=== PATIENT | male | born 1950 | race Caucasian/White ===

== ENCOUNTER 2018-04-16 05:47 | Day surgery (SDC) | payer MEDICARE ==
[~2018-04-16] VITALS: Ht 170.2 cm; Wt 73.0 kg
[~2018-04-16 05:47] MED LIST: ADULT ASPIRIN E81 MG PO; ALTOPREV20 MG PO; CVS OMEPRAZOLE20 MG; CVS OMEPRAZOLE20 MG PO; CYCLOBENZAPRINE10 MG PO; DICLOFENAC50 MG PO; FLEXERIL PO; ISOSORB MONO30 MG PO; LISINOPRIL10 MG PO; LOPID600 MG PO; MELOXICAM15 MG PO; METFORMIN500 MG PO; MULTIVITAMIN ME1 TAB PO; NITROGLYCERIN0.4 MG SL; NORCO1 TA1 PO; PERCOCET 10/31 COMBO PO; PLAVIX75 MG PO; PRILOSEC20 MG PO; TOPAMAX100 M1 PO; TOPROL XL PO; TRAZODONE50 MG PO; ZOLPIDEM10 MG PO
[2018-04-16 08:07] VITALS: BP 114/72
== END 2018-04-16 08:25 | disposition home or self-care (01) ==
LOC: ENDO 05:47
PROVIDERS: ATTEND Surgery
PROC: 0DJ08ZZ Inspection of Upper Intestinal Tract, Via Natural or Artificial Opening Endoscopic (ICD-10-PCS; principal; 2018-04-16)
PROC: 0DBP8ZX Excision of Rectum, Via Natural or Artificial Opening Endoscopic, Diagnostic (ICD-10-PCS; 2018-04-16)
DX: R63.4 Abnormal weight loss (principal); R10.13 Epigastric pain; R97.0 Elevated carcinoembryonic antigen [CEA]; K44.9 Diaphragmatic hernia without obstruction or gangrene; K31.9 Disease of stomach and duodenum, unspecified; K57.30 Diverticulosis of large intestine without perforation or abscess without bleeding; K62.1 Rectal polyp; M19.90 Unspecified osteoarthritis, unspecified site; I10 Essential (primary) hypertension; E11.9 Type 2 diabetes mellitus without complications; E78.00 Pure hypercholesterolemia, unspecified

== ENCOUNTER 2018-05-12 19:47 | Emergency (ER) | payer MEDICARE ==
[~2018-05-12] VITALS: Ht 170.2 cm; Wt 69.1 kg
[2018-05-12 20:49] LABS: HEMATOCRIT 34.1 % (39.0-50.0); HEMOGLOBIN 11.3 g/dl (14.0-18.0); MEAN CELL VOLUME 101.5 fL CALC (80.0-100.0); MEAN CORPUSCULAR HGB 33.6 pG CALC (26.0-32.0); MEAN CORPUSCULAR HGB CONC 33.1 g/L CALC (32.0-36.0); NEUT# 1.99 thou/uL (1.82-7.42); RED BLOOD COUNT 3.36 mill/uL (4.70-6.10); RED CELL DISTRI WIDTH 12.6 % (11.5-15.5)
[2018-05-12 21:02] LABS: ALBUMIN 4.4 g/dL (3.2-5.0); ALKALINE PHOSPHATASE 64 u/l (38-126); ANION GAP 15 (6-22 (CALC)); BILIRUBIN, TOTAL 0.4 mg/dL (0.0-1.4); BUN 18 mg/dL (8-23); BUN/CREATININE RATIO 22 (12-20 (CALC)); CARBON DIOXIDE 25 mmol/l (22-30); CHLORIDE 108 mmol/l (95-108); CREATININE 0.8 mg/dL (0.7-1.3); GFR > 60 ML/MIN (>=60 (CALC)); GFR FOR AFR.AMER. > 60 ML/MIN (>=60 (CALC)); LIPASE 256 u/l (23-300); POTASSIUM 4.6 mmol/l (3.5-5.1); SGOT/AST 49 u/l (19-48); SGPT/ALT 33 u/l (11-66); SODIUM 143 mmol/l (137-146); TOTAL PROTEIN 7.7 g/dL (6.3-8.2)
[2018-05-12 22:28] LABS: URINE BILIRUBIN - DIPSTICK NEGATIVE (NEGATIVE); URINE BLOOD DIPSTICK NEGATIVE (NEGATIVE); URINE COLOR YELLOW; URINE GLUCOSE - DIPSTICK NEGATIVE (NEGATIVE); URINE KETONE NEGATIVE (NEGATIVE); URINE LEUK ESTERASE NEGATIVE (NEGATIVE); URINE NITRITE - DIPSTICK NEGATIVE (Negative); URINE PROTEIN - DIPSTICK NEGATIVE (NEG-TRACE); URINE UROBILINOGEN - DIPSTICK 0.2 E.U./dL (0.2)
[2018-05-12 22:29] LABS: URINE CLARITY CLEAR
[2018-05-12] MEDS ORDERED: NAPROSYN500 MG PO (23:44)
[2018-05-12 23:52] VITALS: BP 130/68
== END 2018-05-12 23:55 | disposition home or self-care (01) ==
LOC: ED 19:47
DX: R10.11 Right upper quadrant pain (principal); E11.9 Type 2 diabetes mellitus without complications; I10 Essential (primary) hypertension; I71.4 Abdominal aortic aneurysm, without rupture; F17.210 Nicotine dependence, cigarettes, uncomplicated; K44.9 Diaphragmatic hernia without obstruction or gangrene; Z95.5 Presence of coronary angioplasty implant and graft
CPT/HCPCS: Q9967

== ENCOUNTER 2019-05-29 13:01 | Emergency (ER) | payer MEDICARE ==
[~2019-05-29] VITALS: Ht 170.2 cm; Wt 68.6 kg
[~2019-05-29 13:01] MED LIST changes: +NAPROSYN500 MG PO
[2019-05-29] MEDS ORDERED: PREDNISONE10 MG PO (16:18)
[2019-05-29 16:45] VITALS: BP 140/67
== END 2019-05-29 16:45 | disposition home or self-care (01) ==
LOC: ED 13:01
DX: M16.12 Unilateral primary osteoarthritis, left hip (principal); E11.9 Type 2 diabetes mellitus without complications; I10 Essential (primary) hypertension; F17.210 Nicotine dependence, cigarettes, uncomplicated

== ENCOUNTER 2019-10-02 | Emergency (ER) | payer MEDICARE ==
[~2019-10-02] MED LIST changes: +PREDNISONE10 MG PO
[2019-10-02] MEDS ORDERED: LORTAB 1010 MG PO (16:16)
[2019-10-02 16:49] LABS: URINE BILIRUBIN - DIPSTICK NEGATIVE (NEGATIVE); URINE BLOOD DIPSTICK NEGATIVE (NEGATIVE); URINE COLOR YELLOW; URINE GLUCOSE - DIPSTICK NEGATIVE (NEGATIVE); URINE KETONE NEGATIVE (NEGATIVE); URINE LEUK ESTERASE NEGATIVE (NEGATIVE); URINE NITRITE - DIPSTICK NEGATIVE (Negative); URINE PH 6.5 (4.5-8.0); URINE PROTEIN - DIPSTICK NEGATIVE (NEG-TRACE); URINE SPECIFIC GRAVITY 1.015
[2019-10-02 16:50] LABS: HEMATOCRIT 39.2 % (39.0-50.0); HEMOGLOBIN 13.1 g/dl (14.0-18.0); IMMATURE GRANULOCYTES 0.3 % (0.0-5.0); MEAN CELL VOLUME 96.3 fL CALC (80.0-100.0); MEAN CORPUSCULAR HGB 32.2 pG CALC (26.0-32.0); MEAN CORPUSCULAR HGB CONC 33.4 g/L CALC (32.0-36.0); NEUT# 8.4 thou/uL (1.82-7.42); RED BLOOD COUNT 4.07 mill/uL (4.70-6.10); RED CELL DISTRI WIDTH 13.1 % (11.5-15.5)
[2019-10-02 17:51] LABS: ALKALINE PHOSPHATASE 82 u/l (38-126); BILIRUBIN, TOTAL 0.8 mg/dL (0.0-1.4); BUN 9 mg/dL (8-23); BUN/CREATININE RATIO 15 (12-20 (CALC)); CARBON DIOXIDE 24 mmol/l (22-30); CHLORIDE 102 mmol/l (95-108); CREATININE 0.6 mg/dL (0.7-1.3); GFR > 60 ML/MIN (>=60 (CALC)); GFR FOR AFR.AMER. > 60 ML/MIN (>=60 (CALC)); SGOT/AST 37 u/l (19-48); SODIUM 137 mmol/l (137-146); TOTAL PROTEIN 7.6 g/dL (6.3-8.2)
[2019-10-02 17:54] LABS: ANION GAP 15 (6-22 (CALC)); POTASSIUM 3.7 mmol/l (3.5-5.1)
[2019-10-02] MEDS ORDERED: ULTRAM50 M1 PO (19:18)
== END 2019-10-02 20:00 | disposition home or self-care (01) ==
PROVIDERS: Emergency Medicine
DX: K80.20 Calculus of gallbladder without cholecystitis without obstruction (principal); E11.9 Type 2 diabetes mellitus without complications; I10 Essential (primary) hypertension; F17.210 Nicotine dependence, cigarettes, uncomplicated; I71.4 Abdominal aortic aneurysm, without rupture

== ENCOUNTER 2019-12-22 | Emergency (ER) | payer MEDICARE ==
[~2019-12-22] MED LIST changes: +LORTAB 1010 MG PO; +ULTRAM50 M1 PO
[2019-12-22] MEDS ORDERED: AMOXICILLIN500 MG PO (04:42)
[2019-12-22] MEDS ORDERED: LORTAB 1010 MG PO (04:42)
== END 2019-12-22 05:25 | disposition home or self-care (01) ==
DX: S51.812A Laceration without foreign body of left forearm, initial encounter (principal); S51.012A Laceration without foreign body of left elbow, initial encounter; S20.212A Contusion of left front wall of thorax, initial encounter; E11.9 Type 2 diabetes mellitus without complications; I10 Essential (primary) hypertension; F17.210 Nicotine dependence, cigarettes, uncomplicated; W01.198A Fall on same level from slipping, tripping and stumbling with subsequent striking against other object, initial encounter; Y92.008 Other place in unspecified non-institutional (private) residence as the place of occurrence of the external cause

== ENCOUNTER 2020-09-04 11:41 | Emergency (ER) | payer MEDICARE ==
[~2020-09-04] VITALS: Ht 170.2 cm; Wt 75.9 kg
[~2020-09-04 11:41] MED LIST changes: +AMOXICILLIN500 MG PO
[2020-09-04 16:55] VITALS: BP 135/89
[2020-09-04] MEDS ORDERED: METFORMIN HYDR500 MG PO (17:40)
[2020-09-04] MEDS ORDERED: TIZANIDINE HCL2 M1 PO (17:41)
[2020-09-04] MEDS ORDERED: CLOPIDOGREL75 MG PO (17:41)
[2020-09-04] MEDS ORDERED: ESCITALOPRAM OX20 MG PO (17:41)
[2020-09-04] MEDS ORDERED: INDERAL LA60 MG PO (17:42)
[2020-09-04] MEDS ORDERED: LOVASTATIN20 M1 PO (17:42)
[2020-09-04] MEDS ORDERED: LORTAB 1010 MG PO (17:43)
[2020-09-04] MEDS ORDERED: LEVETIRACETAM500 MG PO (17:44)
[2020-09-04] MEDS ORDERED: PRAMIPEXOLE0.125 M1 PO (17:44)
[2020-09-04] MEDS ORDERED: ALPRAZOLAM0.5 M2 PO (17:46)
== END 2020-09-04 16:55 | disposition home or self-care (01) ==
LOC: ED 11:41
DX: S22.42XA Multiple fractures of ribs, left side, initial encounter for closed fracture (principal); E11.9 Type 2 diabetes mellitus without complications; I10 Essential (primary) hypertension; I71.4 Abdominal aortic aneurysm, without rupture; F17.210 Nicotine dependence, cigarettes, uncomplicated; W01.0XXA Fall on same level from slipping, tripping and stumbling without subsequent striking against object, initial encounter; Y93.K9 Activity, other involving animal care; Y92.71 Barn as the place of occurrence of the external cause; Z95.5 Presence of coronary angioplasty implant and graft

== ENCOUNTER 2021-04-05 19:08 | Emergency (ER) | payer MEDICARE, OTHER ==
[~2021-04-05 19:08] MED LIST changes: +ALPRAZOLAM0.5 M2 PO; +CLOPIDOGREL75 MG PO; +ESCITALOPRAM OX20 MG PO; +INDERAL LA60 MG PO; +LEVETIRACETAM500 MG PO; +LOVASTATIN20 M1 PO; +METFORMIN HYDR500 MG PO; +PRAMIPEXOLE0.125 M1 PO; +TIZANIDINE HCL2 M1 PO
[2021-04-05 19:37] LABS: GFR > 60 ML/MIN (>=60 (CALC)); GFR FOR AFR.AMER. > 60 ML/MIN (>=60 (CALC))
[2021-04-05 19:41] LABS: IMMATURE GRANULOCYTES 0.7 % (0.0-5.0); MEAN CORPUSCULAR HGB 34.5 pG CALC (26.0-32.0); MEAN CORPUSCULAR HGB CONC 32.5 g/dL CAL (32.0-36.0); NEUT# 3.87 thou/uL (1.82-7.42); RED BLOOD COUNT 2.87 mill/uL (4.70-6.10); RED CELL DISTRI WIDTH 12.6 % (11.5-15.5)
[2021-04-05 19:49] LABS: ALKALINE PHOSPHATASE 59 u/l (38-126); ANION GAP 13 (6-22 (CALC)); BUN 10 mg/dL (8-23); BUN/CREATININE RATIO 12 (12-20 (CALC)); CARBON DIOXIDE 21 mmol/l (22-30); CHLORIDE 105 mmol/l (95-108); CREATININE 0.9 mg/dL (0.7-1.3); GFR > 60 ML/MIN (>=60 (CALC)); GFR FOR AFR.AMER. > 60 ML/MIN (>=60 (CALC)); INTERNATIONAL NORMALIZED RATIO 1.1 RATIO (0.7-1.3); LIPASE 142 u/l (23-300); POTASSIUM 3.5 mmol/l (3.5-5.1); PROTHROMBIN TIME 11.4 SECONDS (9.0-12.5); SODIUM 135 mmol/l (137-146)
[2021-04-05 19:55] LABS: HEMATOCRIT 30.5 % (39.0-50.0); HEMOGLOBIN 9.9 g/dl (14.0-18.0); MEAN CELL VOLUME 106.3 fL CALC (80.0-100.0)
[2021-04-05 20:04] LABS: ALBUMIN 2.9 g/dL (3.2-5.0); BILIRUBIN, TOTAL 0.3 mg/dL (0.0-1.4); SGOT/AST 141 u/l (19-48); TOTAL PROTEIN 5.7 g/dL (6.3-8.2)
[2021-04-05 20:12] LABS: URINE BILIRUBIN - DIPSTICK NEGATIVE (NEGATIVE); URINE BLOOD DIPSTICK LARGE (NEGATIVE); URINE COLOR YELLOW; URINE GLUCOSE - DIPSTICK NEGATIVE (NEGATIVE); URINE KETONE NEGATIVE (NEGATIVE); URINE LEUK ESTERASE NEGATIVE (NEGATIVE); URINE PROTEIN - DIPSTICK TRACE mg/dL (NEG-TRACE); URINE UROBILINOGEN - DIPSTICK 0.2 E.U./dL (0.2)
[2021-04-05 20:35] LABS: URINE NITRITE - DIPSTICK NEGATIVE (Negative)
[2021-04-05 20:36] LABS: URINE RBC 25-50 RBC/hpf (0-5); URINE WBC 0-2 WBC/hpf (0-5)
[2021-04-05 22:26] VITALS: BP 61/46
[2021-04-05 22:28] VITALS: BP 78/52
[2021-04-05 22:41] VITALS: BP 73/50
[2021-04-05 23:22] VITALS: BP 68/50
== END 2021-04-05 23:28 | DRG 999 ==
LOC: ED 19:08
PROVIDERS: Family Medicine
PROC: 0T9B70Z Drainage of Bladder with Drainage Device, Via Natural or Artificial Opening (ICD-10-PCS; principal; 2021-04-05)
PROC: 30233N1 Transfusion of Nonautologous Red Blood Cells into Peripheral Vein, Percutaneous Approach (ICD-10-PCS; 2021-04-05)
PROC: 30233N1 Transfusion of Nonautologous Red Blood Cells into Peripheral Vein, Percutaneous Approach (ICD-10-PCS; 2021-04-05)
DX: S06.4X0A Epidural hemorrhage without loss of consciousness, initial encounter (principal); S22.43XA Multiple fractures of ribs, bilateral, initial encounter for closed fracture; S22.21XA Fracture of manubrium, initial encounter for closed fracture; S02.19XA Other fracture of base of skull, initial encounter for closed fracture; S02.841A Fracture of lateral orbital wall, right side, initial encounter for closed fracture; S02.40EA Zygomatic fracture, right side, initial encounter for closed fracture; S02.31XA Fracture of orbital floor, right side, initial encounter for closed fracture; S70.11XA Contusion of right thigh, initial encounter; S00.91XA Abrasion of unspecified part of head, initial encounter; S00.81XA Abrasion of other part of head, initial encounter; S40.211A Abrasion of right shoulder, initial encounter; S50.811A Abrasion of right forearm, initial encounter; S60.511A Abrasion of right hand, initial encounter; S90.812A Abrasion, left foot, initial encounter; S42.032A Displaced fracture of lateral end of left clavicle, initial encounter for closed fracture; S92.512A Displaced fracture of proximal phalanx of left lesser toe(s), initial encounter for closed fracture; S92.412A Displaced fracture of proximal phalanx of left great toe, initial encounter for closed fracture; I10 Essential (primary) hypertension; J44.9 Chronic obstructive pulmonary disease, unspecified; E11.9 Type 2 diabetes mellitus without complications; I71.4 Abdominal aortic aneurysm, without rupture; F17.200 Nicotine dependence, unspecified, uncomplicated; V86.55XA Driver of 3- or 4- wheeled all-terrain vehicle (ATV) injured in nontraffic accident, initial encounter; Y93.I9 Activity, other involving external motion; Z95.5 Presence of coronary angioplasty implant and graft; Z96.641 Presence of right artificial hip joint; Z79.84 Long term (current) use of oral hypoglycemic drugs
CPT/HCPCS: P9016; Q9967